=== PATIENT | female | born 1975 | race Caucasian/White ===

== ENCOUNTER 2023-12-16 06:50 | Emergency (ER) | payer BC, SELFPAY ==
[2023-12-16 06:55] VITALS: BP 110/85
[2023-12-16 06:56] VITALS: BP 110/85
[2023-12-16 07:01] VITALS: BMI 23.9
--- NOTE | 2023-12-16 07:56 | ED.GENMED ---
History of Present Illness
General
Chief Complaint: Headache
Time Seen by Provider: 12/16/23 07:09
History of Present Illness
History of Present Illness:
26-year-old female with history of chronic migraines presents to the emergency department for evaluation of right occipital pain that began last night waking her up from sleep, pain was described as sharp and episodic, stabbing type pains. The pain
would last for 15 to 30 seconds before resolving but was occurring frequently. She took oral diclofenac and attempted to go back to sleep. Awoke this morning with worsening pain, began to feel flushed and near syncopal, states she seemed
off balance and confused. She had generalized tremors as well. 911 was called as the patient seemed to be all symptoms resolved in transit. She currently reports persistent headache but denies any continued near syncopal or dizzy type symptoms.
No chest pain or shortness of breath. Pain is somewhat similar to past migraines however in nontraditional location for her. Has had extensive migraine workup in the past including MRIs and numerous medication trials
Past History
Past History
ED Past Medical History: Other (MIGRAINE)
ED Past Surgical History: Appendectomy, and Other (Teratoma surgery)
Social History
Tobacco: Non-smoker
Alcohol: Occasional
Drug: None
Personal:
Living: with family
Employment: Employed
Family History
Family History: Other (Pending)
Review of Systems
Review of Systems
Allergies reviewed?: Yes
All Other Systems: ROS reviewed and negative except as documented in HPI and ROS
Phy Exam
Physical Exam
Physical Exam:
GEN: Well appearing, NAD, WDWN
HEENT: Oral mucosa moist, no scleral icterus, no nasal congestion. Mildly reproducible tenderness to the R occiput, no erythema or rashes
Cardiac: Regular rate
Lung: No respiratory distress, no tachypnea
MSK: No gross deformity or injuries
Skin: Good color, no pallor or jaundice, no rashes
Neuro: AO x3; CN II-XII grossly intact. BUE strength 5/5 in all coyle, sensation intact and symmetric. BLE strength 5/5 in all coyle, sensation intact and symmetric
Psych: Calm, cooperative
Course
Orders/Labs/Results
Orders:
Orders
12/16/23 07:53
Electrocardiogram (*1) Urgent
Reason for Study: Syncope
EKG- Treatment ONCE
Ketorolac [Toradol] 15 mg IV NOW STA
Magnesium Sulfate 2 Gram/50 ml [Magnesium Sulfate] 2 gram in 50 ml IV NOW
12/16/23 08:01
Complete Blood Count/No Diff Urgent
Comprehensive Metabolic Panel Urgent
Abnormal Lab Results
12/16/23
08:01
Hct 36.0 L %
(37.0-47.0)
12/16/23 08:01
12/16/23 08:01
Vital Signs
Initial and Last Documented VS:
Initial Vital Signs
Pulse Ox
100
12/16/23 06:54
Last Documented Vital Signs
Temp Pulse Resp BP Pulse Ox
97.6 F 84 16 113/79 100
12/16/23 06:56 12/16/23 08:06 12/16/23 08:06 12/16/23 08:00 12/16/23 08:00
MDM/Problems Addressed
MDM/Problems Addressed:
Patient's examination is benign do not see rationale for CT imaging of the brain at this time as she is neurologically intact and this headache has some similarity to her past chronic migraine. Her pain likely represents occipital neuralgia. I
suspect she had a vasovagal near syncopal event that provoked the majority of her symptoms. Labs are reassuring. She had minimal to no improvement with migraine treatment in the emergency department today. Stable for discharge home
*Critical Care Note
Total Time (30-74mins, 75-104mins- exclusive of procedures): Not Applicable
ED Attending Note
-
Portions of this chart may have been created with voice recognition software.� Occasional wrong word or��sound alike� substitutions may have occurred due to the inherent limitations of voice recognition software.
Discharge Plan
Departure
Patient Disposition: Home (Routine Discharge)
Date of Disposition: 12/16/23
Time of Disposition: 08:47
Patient with high blood pressure during this ER visit?: No
Discharge Problem:
Headache, occipital, Vasovagal near syncope
Instructions: Headache, Adult (DC)
Prescriptions:
No Action
loratadine-pseudoephedrine 240 MG/10 MG tablet extended release 24 hr
1 tab PO DAILY
diclofenac potassium [Cambia] 50 MG powder in packet
50 mg PO PRN PRN (Reason: migraine)
Referrals:
Mechelle Arizmendi, [Family Provider] -
Interventions
Interventions:
*Risk Screen - Suicide Last Done: 12/16/23 06:56
*General Assessment Last Done: 12/16/23 06:56
*Neglect/Abuse Screening Last Done: 12/16/23 06:56
ED- Fall Risk Assessment Last Done: 12/16/23 08:53
*ED COVID-19 Vaccine History Last Done: 12/16/23 06:56
*Nursing Disposition Last Done: 12/16/23 08:53
ED- Neurological Assessment Last Done: 12/16/23 06:56
Discharge Date and Time
Discharge Date/Time: 12/16/23 09:18
Print Language: ETHIOPIAN
[2023-12-16 08:00] VITALS: BP 113/79
[2023-12-16] MEDS: TORADOL 15 MG IV (08:01)
[2023-12-16] MEDS: MAGNESIUM SULFATE 50 IV (08:02)
[2023-12-16 08:13] LABS: Hemoglobin 12.6 g/dL (12.0-16.0); Mean Corpuscular Hgb 29.6 pg (27.0-31.0); Mean Corpuscular Volume 84.5 fL (81.0-99.0); Mean Platelet Volume 9.6 fL (7.4-10.4); Platelet Count 301 10^3/uL (130-400); Red Blood Cell Count 4.26 10^6/uL (4.20-5.40); Red Cell Dist. Width 13.2 % (11.5-14.5); White Blood Cell Count 8.7 10^3/uL (4.8-10.8)
[2023-12-16 08:25] LABS: ALT (SGPT) 15 U/L (0-35); AST (SGOT) 22 U/L (14-36); Albumin 4.2 g/dl (3.5-5.0); Alkaline Phosphatase 48 U/L (38-126); Blood Urea Nitrogen 9 mg/dl (7-17); Calcium 9.1 mg/dl (8.4-10.2); Carbon Dioxide 23 mmol/L (22-30); Chloride 107 mmol/L (98-107); Estimated Creatinine Clearance 73 ml/min; Glucose 88 mg/dl (70-99); Potassium 4.1 mmol/L (3.5-5.1); Sodium 141 mmol/L (135-145); Total Bilirubin 0.7 mg/dl (0.2-1.3); Total Protein 6.7 g/dl (6.3-8.2); eGFR > 60.00
== END 2023-12-16 09:18 | disposition home or self-care (01) ==
LOC: EMR 06:50
PROVIDERS: Physician Assistant; EMERGENCY PHYSICIAN Emergency Medicine; FAMILY PHYSICIAN Internal Medicine
DX: R55 Syncope and collapse (principal); R51.9 Headache, unspecified
CPT/HCPCS: 99284; 96374; 96375; 80053; 85027; 93005